=== PATIENT | male | born 1980 | race African-American/Black ===

== ENCOUNTER 2021-06-17 00:07 | Inpatient (IN) | payer OTHER ==
[~2021-06-17] VITALS: Ht 157.5 cm; Wt 46.1 kg
[2021-06-17 01:58] LABS: BASO % 1 % (0-3); EOS % 1 % (0-3); HEMATOCRIT 41.9 % (39.0-53.0); HEMOGLOBIN 14.5 g/dL (13.0-17.5); LYMPH # 1.2 x10^3/uL (1.0-4.8); LYMPH % 37 % (24-48); MEAN CORPUSCULAR HEMOGLOBIN 32 pg (25-35); MEAN CORPUSCULAR HGB CONC 35 g/dL (31-37); MEAN CORPUSCULAR VOLUME 92 fL (79-100); MONO # 0.3 x10^3/uL (0.0-1.1); MONO % 10 % (0-9); NEUT # 1.6 x10^3/uL (1.8-7.7); NEUT % 50 % (31-73); PLATELET COUNT 162 x10^3/uL (140-400); RED BLOOD COUNT 4.54 x10^6/uL (4.30-5.70); RED CELL DISTRIBUTION WIDTH 12.8 % (11.5-14.5); WHITE BLOOD COUNT 3.2 x10^3/uL (4.0-11.0)
[2021-06-17 02:08] LABS: CALCIUM 8.8 mg/dL (8.5-10.1); CREATININE 0.9 mg/dL (0.7-1.3); GFR 113.1; POTASSIUM 4.5 mmol/L (3.5-5.1)
[2021-06-17 02:13] LABS: FIO2 VENOUS ISTAT 21; ISTAT HCO3 VEN 27 mmol/L (24-28); ISTAT PCO2 VEN 45 mmHg (41-51); ISTAT PH VEN 7.38 (7.32-7.42); ISTAT PO2 VEN 71 mmHg (20-40); ISTAT SAT O2 VEN 94 %; ISTAT TCO2 VEN 28 mmol/L (21-32)
[2021-06-17 02:16] LABS: ALBUMIN 3.4 g/dL (3.4-5.0); ALBUMIN/GLOBULIN RATIO 1.1 (1.0-1.7); TOTAL BILIRUBIN 1.5 mg/dL (0.2-1.0); TOTAL PROTEIN 6.4 g/dL (6.4-8.2)
[2021-06-17] MEDS ORDERED: CONTRAST GIVEN. MC PRN (02:45)
[2021-06-17] MEDS ORDERED: ONDANSETRON PF 4 MG/2 ML VIAL. IVP ONE (03:00)
[2021-06-17] MEDS ORDERED: ACETAMINOPHEN 500 MG TABLET PO ONE (03:00)
[2021-06-17] MEDS ORDERED: IOHEXOL 300 MG/ML 100ML VIAL. IV ONE (03:00)
[2021-06-17] MEDS ORDERED: KETOROLAC 15 MG/ML VIAL. IVP ONE (03:00)
[2021-06-17] MEDS ORDERED: IV NORMAL SALINE 1000ML BAG 1,000 ML IV ONE (03:00)
[2021-06-17 03:19] LABS: BILIRUBIN,URINE NEGATIVE (NEG); CLARITY,URINE CLEAR; COLOR,URINE YELLOW; NITRITE,URINE NEGATIVE (NEG); PH,URINE 6.5 (<5.0-8.0); PROTEIN,URINE NEGATIVE (NEG-TRACE)
--- NOTE | 2021-06-17 03:26 | RAD ---
Exam: CT abdomen/pelvis with intravenous contrast Indication: Bilateral lower abdominal pain and inguinal lymphadenopathy. Comparison: None. Technique: Helical CT imaging performed of the abdomen and pelvis after the intravenous administratio n of 75 mL Omnipaque 300 contrast. Sagittal and coronal reformats were obtained. One or more of the following individualized dose reduction techniques were utilized for this examinat ion: 1. Automated exposure control 2. Adjustment of the mA and/or kV according to patient size 3. Use of iterative reconstruction technique. Findings: Lower chest: Lung bases are clear. Heart is normal in size. Liver: Mild hepatic steatosis. No focal liver lesion. Gallbladder/Biliary Tree: Normal. Pancreas: Normal. Spleen: Normal. Adrenal Glands: Normal. Kidneys/Ureters/Bladder: Kidneys are normal in size and enhancement. No hydronephrosis. Ureters are n ondilated. Urinary bladder is normal. Reproductive Organs: Prostate gland is normal. Stomach, small bowel, and colon: The stomach, small bowel, appendix, and colon are unremarkable. Vasculature: No aortic aneurysm. Lymph Nodes: No abdominal pelvic lymphadenopathy. No inguinal lymphadenopathy. Peritoneum and retroperitoneum: Trace free fluid in the pelvis. Free air. Bones: No acute osseous abnormality. Miscellaneous: There are small bilateral inguinal lymph nodes, nonspecific. No inguinal hernia. Impression: 1. No acute abnormality in the abdomen and pelvis. 2. Possible trace fluid in the pelvis, nonspecific. 3. Hepatic steatosis. Electronically signed by: Reta Dominguez MD (06/17/2021 3:23 AM) [facility]
[2021-06-17] MEDS ORDERED: INSULIN REGULAR 100 UNIT/ML 3ML VIAL. SQ ONE (03:30)
[2021-06-17 03:47] LABS: DIRECT BILIRUBIN 0.8 mg/dL (0.0-0.2)
[2021-06-17 03:49] LABS: ACETAMIN < 2 mcg/ml (10-30)
[2021-06-17 03:55] LABS: BACTERIA,URINE 0 /HPF (0-FEW); RBC,URINE 0 /HPF (0-2); WBC,URINE OCC /HPF (0-4)
--- NOTE | 2021-06-17 05:11 | PHYS DOC ---
Past Medical History Past Surgical History: No Surgical History Smoking Status: Current Every Day Smoker Alcohol Use: None Adult General Chief Complaint Chief Complaint: NAUSEA/VOMITING/DIARRHEA HPI HPI The patient is a 41-year-old [place] male with a history of insulin- dependent diabetes, off his insulin for the last 1.5 years as he feels he no longer needs it. He does not have any other diagnosed medical conditions for which he takes daily medication. Fluent telephonic interpretation used to gather history. Mr. Roper presents for evaluation of nausea, a few episodes of nonbloody vomiting per day and poor food and fluid intake over the past 3 days, in association with bilateral tender inguinal lymphadenopathy which he has noticed only over the past day or so. He denies any other focal or specific symptoms and specifically denies fevers, upper respiratory congestion/rhinorrhea, cough, sore throat, shortness of breath or chest pain of any kind, focal abdominal pain of any kind, flank pain, midline back pain, dysuria, hematuria, polyuria or oliguria, pain to testicles or scrotum specifically, changes in bowel habits. Patient is alert and pleasantly and appropriately interactive and in no acute distress with appropriate vital signs upon initial evaluation here in the emergency department. Review of Systems Review of Systems A 12 point review of systems was completed and was negative except where noted in HPI above. Current Medications Current Medications Current Medications Medications (Trade) Dose Ordered Sig/Carlitos Start Time Stop Time Status Last Admin Dose Admin Acetaminophen (Tylenol) 1,000 mg 1X ONCE 06/17/21 03:00 06/17/21 03:01 DC 06/17/21 02:41 1,000 MG Info (CONTRAST GIVEN -- Rx MONITORING) 1 each PRN DAILY PRN 06/17/21 02:45 06/19/21 02:44 Insulin Human Regular (HumuLIN R VIAL) 10 unit 1X ONCE 06/17/21 03:30 06/17/21 03:31 DC 06/17/21 03:45 10 UNIT Iohexol (Omnipaque 300 Mg/ml) 75 ml 1X ONCE 06/17/21 03:00 06/17/21 03:01 DC 06/17/21 02:34 75 ML Ketorolac Tromethamine (Toradol 15mg Vial) 15 mg 1X ONCE 06/17/21 03:00 06/17/21 03:01 DC 06/17/21 02:41 15 MG Ondansetron HCl (Zofran) 4 mg 1X ONCE 06/17/21 03:00 06/17/21 03:01 DC 06/17/21 02:40 4 MG Sodium Chloride 1,000 ml @ 1,000 mls/hr 1X ONCE 06/17/21 03:00 06/17/21 03:59 DC 06/17/21 02:40 1,000 MLS/HR Allergies Allergies Allergies Coded Allergies Type Severity Reaction Last Updated Verified No Known Drug Allergies 06/17/21 No Physical Exam Physical Exam 41-year-old male appearing nontoxic and in no acute distress. Head is normocephalic and atraumatic. Neck is supple and nontender. Oropharynx is moist. Lungs are clear to auscultation at all stations. There is a normal S1 and S2 without rubs or gallops and capillary refill is appropriate, less than 2 seconds globally. Abdomen is soft, nontender and nondistended. Skin is warm and dry and without cyanosis, clubbing or edema. Psychiatrically, the patient demonstrates appropriate mood and affect and is alert. Evaluation of the bilateral lower extremities reveals BLEs neurovascularly intact distally with strength out of 5, sensation intact light touch in all nerve distributions, DP and PT pulses 2+ and equal bilaterally, capillary refill less than 2 seconds, feet warm and well-perfused. No dependent peripheral edema distally. No calf tenderness or swelling bilaterally. Homans test is negative bilaterally. No erythema, warmth or swelling to the bilateral legs. Evaluation of the groin reveals tender bilateral inguinal lymphadenopathy without overlying erythema. Scrotum and testicles and penis are without erythema, warmth or swelling and without tenderness to palpation. Testicles have a normal lie bilaterally Current Patient Data Vital Signs Vital Signs Date Time Temp Pulse Resp B/P (MAP) Pulse Ox O2 Delivery O2 Flow Rate FiO2 06/17/21 04:15 48 18 122/85 (97) 99 Room Air 06/17/21 01:20 98.0 98.0 Lab Values Laboratory Tests Test 06/17/21 01:09 06/17/21 01:40 06/17/21 01:44 06/17/21 03:00 Glucose (Fingerstick) 420 mg/dL (70-99) H White Blood Count 3.2 x10^3/uL (4.0-11.0) L Red Blood Count 4.54 x10^6/uL (4.30-5.70) Hemoglobin 14.5 g/dL (13.0-17.5) Hematocrit 41.9 % (39.0-53.0) Mean Corpuscular Volume 92 fL (79-100) Mean Corpuscular Hemoglobin 32 pg (25-35) Mean Corpuscular Hemoglobin Concent 35 g/dL (31-37) Red Cell Distribution Width 12.8 % (11.5-14.5) Platelet Count 162 x10^3/uL (140-400) Neutrophils (%) (Auto) 50 % (31-73) Lymphocytes (%) (Auto) 37 % (24-48) Monocytes (%) (Auto) 10 % (0-9) H Eosinophils (%) (Auto) 1 % (0-3) Basophils (%) (Auto) 1 % (0-3) Neutrophils # (Auto) 1.6 x10^3/uL (1.8-7.7) L Lymphocytes # (Auto) 1.2 x10^3/uL (1.0-4.8) Monocytes # (Auto) 0.3 x10^3/uL (0.0-1.1) Eosinophils # (Auto) 0.0 x10^3/uL (0.0-0.7) Basophils # (Auto) 0.0 x10^3/uL (0.0-0.2) Sodium Level 136 mmol/L (136-145) Potassium Level 4.5 mmol/L (3.5-5.1) Chloride Level 97 mmol/L (98-107) L Carbon Dioxide Level 27 mmol/L (21-32) Anion Gap 12 (6-14) Blood Urea Nitrogen 13 mg/dL (8-26) Creatinine 0.9 mg/dL (0.7-1.3) Estimated GFR (Cockcroft-Gault) 113.1 BUN/Creatinine Ratio 14 (6-20) Glucose Level 406 mg/dL (70-99) H Calcium Level 8.8 mg/dL (8.5-10.1) Total Bilirubin 1.5 mg/dL (0.2-1.0) H Aspartate Amino Transferase (AST) 641 U/L (15-37) H Alanine Aminotransferase (ALT) 2737 U/L (16-63) H Alkaline Phosphatase 158 U/L (46-116) H Total Protein 6.4 g/dL (6.4-8.2) Albumin 3.4 g/dL (3.4-5.0) Albumin/Globulin Ratio 1.1 (1.0-1.7) Lipase 153 U/L (73-393) Acetone Level Neg (NEG) POC Venous pH 7.38 (7.32-7.42) POC Venous pCO2 45 mmHg (41-51) POC Venous pO2 71 mmHg (20-40) H Venous Blood HCO3 27 mmol/L (24-28) POC Venous O2 Saturation (Dana) 94 % POC FiO2 21 Direct Bilirubin 0.8 mg/dL (0.0-0.2) H Gamma Glutamyl Transpeptidase 785 U/L (10-85) H Acetaminophen Level < 2 mcg/ml (10-30) L Acetaminophen Last Dose Date Acetaminophen Last Dose Time Hepatitis A IgM Antibody Nonreactive (Nonreactive) Hepatitis B Surface Antigen Nonreactive (Nonreactive) Hepatitis B Core IgM Antibody Nonreactive (Nonreactive) Hepatitis C IgG Antibody Nonreactive (Nonreactive) Urine Collection Type Unknown Urine Color Yellow Urine Clarity Clear Urine pH 6.5 (<5.0-8.0) Urine Specific [place] >=1.030 (1.000-1.030) Urine Protein Negative mg/dL (NEG-TRACE) Urine Glucose (UA) >=1000 mg/dL (NEG) Urine Ketones (Stick) Trace mg/dL (NEG) Urine Blood Negative (NEG) Urine Nitrite Negative (NEG) Urine Bilirubin Negative (NEG) Urine Urobilinogen Dipstick 1.0 mg/dL (0.2 mg/dL) Urine Leukocyte Esterase Negative (NEG) Urine RBC 0 /HPF (0-2) Urine WBC Occ /HPF (0-4) Urine Squamous Epithelial Cells Occ /LPF Urine Bacteria 0 /HPF (0-FEW) Laboratory Tests 06/17/21 01:40 Laboratory Tests 06/17/21 01:40 EKG EKG [] Radiology/Procedures Radiology/Procedures [] Course & Med Decision Making Course & Med Decision Making Work-up as above is generally without evidence of acute process aside from hyperglycemia which has been addressed with IV fluids and subcutaneous insulin, along with rather marked transaminasemia and mild cholestasis. In context, suspected patient's anorexia, nausea and vomiting are probably due to his LFT abnormalities. He does not have any right upper quadrant abdominal tenderness. CT with evidence of hepatic steatosis but otherwise unremarkable from a hepatic and biliary perspective. Tylenol level and acute hepatitis panel negative. Right upper quadrant ultrasound ordered and pending. Will bring in for further care, including GI consultation. Graciously accepted for admission by hospitalist Dr. Arnett. Kamille Disclaimer Kamille Disclaimer This electronic medical record was generated, in whole or in part, using a voice recognition dictation system. Departure Departure Impression: Primary Impression: Cholestasis Additional Impressions: Transaminasemia Inguinal lymphadenopathy Hyperglycemia due to diabetes mellitus Disposition: ADMITTED INPATIENT Condition: STABLE Referrals: NO PCP (PCP) Problem Qualifiers BILL ELMORE MD Jun 17, 2021 05:11
[2021-06-17] MEDS ORDERED: ONDANSETRON PF 4 MG/2 ML VIAL. IVP PRN (05:15)
[2021-06-17] MEDS ORDERED: fentaNYL PF VIAL 100 MCG/2 ML VIAL IVP PRN (05:15)
--- NOTE | 2021-06-17 07:01 | RAD ---
EXAMINATION: US ABDOMEN LIMITED 06/17/2021 5:52 AM INDICATION: Abnormal LFTs. Right upper quadrant ultrasound. TECHNIQUE: Joel scale and color Doppler ultrasound images of the right upper quadrant were obtained. COMPARISON: CT abdomen pelvis 06/17/2021. FINDINGS: Liver: The liver is normal in size. Mildly increased hepatic echogenicity. No focal liver lesion. Gallbladder: The gallbladder is mildly distended. No cholelithiasis or sludge. The gallbladder wal l is normal in thickness. Bile ducts: The common bile duct is normal measuring 1.4 mm. No intrahepatic biliary duct dilatatio n. Right kidney: The right kidney measures 11.0 x 4.3 x 4.1 cm. Normal cortical thickness and echogenic ity. No hydronephrosis. Other: Abdominal aorta and inferior vena cava are normal where visualized. The pancreas is normal wh ere visualized. IMPRESSION: Mild hepatic steatosis. Electronically signed by: Reta Dominguez MD (06/17/2021 6:59 AM) [facility]
[2021-06-17] MEDS ORDERED: INSULIN LISPRO 300 UNITS/3 ML VIAL. SQ ONE ×2 (18:30→23:45)
[2021-06-17 19:00] VITALS: BP 117/74
[2021-06-17 23:00] VITALS: BP 107/76
[2021-06-17] MEDS ORDERED: DEXTROSE 50% 25 GM / 50ML DISP.SYRIN. IV PRN (23:00)
[2021-06-18 03:00] VITALS: BP 107/72
[2021-06-18 07:00] VITALS: BP 118/81
[2021-06-18 08:32] LABS: BASO % 1 % (0-3); EOS % 1 % (0-3); HEMATOCRIT 38.6 % (39.0-53.0); HEMOGLOBIN 13.1 g/dL (13.0-17.5); LYMPH # 1.2 x10^3/uL (1.0-4.8); LYMPH % 32 % (24-48); MEAN CORPUSCULAR HEMOGLOBIN 32 pg (25-35); MEAN CORPUSCULAR HGB CONC 34 g/dL (31-37); MEAN CORPUSCULAR VOLUME 93 fL (79-100); MONO # 0.3 x10^3/uL (0.0-1.1); MONO % 9 % (0-9); NEUT # 2.1 x10^3/uL (1.8-7.7); NEUT % 57 % (31-73); PLATELET COUNT 142 x10^3/uL (140-400); RED BLOOD COUNT 4.14 x10^6/uL (4.30-5.70); RED CELL DISTRIBUTION WIDTH 12.9 % (11.5-14.5); WHITE BLOOD COUNT 3.7 x10^3/uL (4.0-11.0)
[2021-06-18 09:02] LABS: ALBUMIN 2.7 g/dL (3.4-5.0); ALBUMIN/GLOBULIN RATIO 0.9 (1.0-1.7); CALCIUM 8.2 mg/dL (8.5-10.1); CREATININE 0.9 mg/dL (0.7-1.3); GFR 113.1; POTASSIUM 3.7 mmol/L (3.5-5.1); TOTAL BILIRUBIN 0.6 mg/dL (0.2-1.0); TOTAL PROTEIN 5.7 g/dL (6.4-8.2)
[2021-06-18] MEDS: INSULIN LISPRO 300 UNITS/3 ML VIAL. SQ SCH ×5 (09:45→18:43)
--- NOTE | 2021-06-18 09:46 | PDOC2 ---
CONSULT Date of Consult Date of Consult DATE: 06/18/21 TIME: 09:36 Reason for Consult Reason for Consult: Elevated transaminases History of Present Illness Reason for Visit: This is a 41-year-old gentleman who presents with a recent history of nausea and bilateral inguinal discomfort. He has been unable to eat but without significant vomiting or bleeding. On admission he was found to have elevated transaminases we were asked to see him. He denies any history of Tylenol ingestion or previous hepatitis exposure. He denies significant alcohol use. He is in a diabetic but has not been taking his medications recently. On admission he was hyperglycemic. Imaging studies did not reveal significant liver or biliary pathology except for mild steatosis. We were asked to see re garding these abnormalities. Past Medical History Endocrine: Diabetes Current Problem List Problem List Problems Medical Problems: (1) Cholestasis Status: Acute (2) Hyperglycemia due to diabetes mellitus Status: Acute (3) Inguinal lymphadenopathy Status: Acute (4) Transaminasemia Status: Acute Current Medications Current Medications Current Medications Sodium Chloride 1,000 ml @ 1,000 mls/hr 1X ONCE IV Last administered on 06/17/21at 02:40; Start 06/17/21 at 03:00; Stop 06/17/21 at 03:59; Status DC Ketorolac Tromethamine (Toradol 15mg Vial) 15 mg 1X ONCE IVP Last administered on 06/17/21at 02:41; Start 06/17/21 at 03:00; Stop 06/17/21 at 03:01; Status DC Acetaminophen (Tylenol) 1,000 mg 1X ONCE PO Last administered on 06/17/21at 02:41; Start 06/17/21 at 03:00; Stop 06/17/21 at 03:01; Status DC Ondansetron HCl (Zofran) 4 mg 1X ONCE IVP Last administered on 06/17/21at 02:40; Start 06/17/21 at 03:00; Stop 06/17/21 at 03:01; Status DC Iohexol (Omnipaque 300 Mg/ml) 75 ml 1X ONCE IV Last administered on 06/17/21at 02:34; Start 06/17/21 at 03:00; Stop 06/17/21 at 03:01; Status DC Info (CONTRAST GIVEN -- Rx MONITORING) 1 each PRN DAILY PRN MC SEE COMMENTS; Start 06/17/21 at 02:45; Stop 06/19/21 at 02:44 Insulin Human Regular (HumuLIN R VIAL) 10 unit 1X ONCE SQ Last administered on 06/17/21at 03:45; Start 06/17/21 at 03:30; Stop 06/17/21 at 03:31; Status DC Ondansetron HCl (Zofran) 4 mg PRN Q8HRS PRN IVP NAUSEA/VOMITING 1ST CHOICE; Start 06/17/21 at 05:15; Stop 06/18/21 at 05:14; Status DC Fentanyl Citrate (Fentanyl 2ml Vial) 25 mcg PRN Q1HR PRN IVP SEVERE PAIN 7-10; Start 06/17/21 at 05:15; Stop 06/18/21 at 05:14; Status DC Insulin Human Lispro (HumaLOG) 7 units 1X ONCE SQ Last administered on 06/17/21at 20:20; Start 06/17/21 at 18:30; Stop 06/17/21 at 18:31; Status DC Insulin Human Lispro (HumaLOG) 0-9 UNITS TIDWMEALS SQ ; Start 06/18/21 at 08:00 Dextrose (Dextrose 50%-Water Syringe) 12.5 gm PRN Q15MIN PRN IV SEE COMMENTS; Start 06/17/21 at 23:00 Insulin Human Lispro (HumaLOG) 5 units 1X ONCE SQ Last administered on 06/17/21at 23:41; Start 06/17/21 at 23:45; Stop 06/17/21 at 23:46; Status DC Allergies Allergies: Coded Allergies: No Known Drug Allergies (Unverified , 06/17/21) Physical Exam General: Alert, Oriented X3, Cooperative HEENT: Atraumatic, PERRLA Lungs: Clear to auscultation Heart: Regular rate, Normal S1, Normal S2 Abdomen: Normal bowel sounds, Soft, No tenderness, No hepatosplenomegaly, No masses Extremities: No clubbing Neuro: Normal speech Psych/Mental Status: Mental status NL Vitals VITALS Vital Signs Date Time Temp Pulse Resp B/P (MAP) Pulse Ox O2 Delivery O2 Flow Rate FiO2 06/18/21 07:00 98.3 51 16 118/81 (93) 97 Room Air 98.3 Labs Labs Laboratory Tests Test 06/17/21 01:09 06/17/21 01:40 06/17/21 01:44 06/17/21 03:00 Glucose (Fingerstick) 420 mg/dL (70-99) White Blood Count 3.2 x10^3/uL (4.0-11.0) Red Blood Count 4.54 x10^6/uL (4.30-5.70) Hemoglobin 14.5 g/dL (13.0-17.5) Hematocrit 41.9 % (39.0-53.0) Mean Corpuscular Volume 92 fL (79-100) Mean Corpuscular Hemoglobin 32 pg (25-35) Mean Corpuscular Hemoglobin Concent 35 g/dL (31-37) Red Cell Distribution Width 12.8 % (11.5-14.5) Platelet Count 162 x10^3/uL (140-400) Neutrophils (%) (Auto) 50 % (31-73) Lymphocytes (%) (Auto) 37 % (24-48) Monocytes (%) (Auto) 10 % (0-9) Eosinophils (%) (Auto) 1 % (0-3) Basophils (%) (Auto) 1 % (0-3) Neutrophils # (Auto) 1.6 x10^3/uL (1.8-7.7) Lymphocytes # (Auto) 1.2 x10^3/uL (1.0-4.8) Monocytes # (Auto) 0.3 x10^3/uL (0.0-1.1) Eosinophils # (Auto) 0.0 x10^3/uL (0.0-0.7) Basophils # (Auto) 0.0 x10^3/uL (0.0-0.2) Sodium Level 136 mmol/L (136-145) Potassium Level 4.5 mmol/L (3.5-5.1) Chloride Level 97 mmol/L (98-107) Carbon Dioxide Level 27 mmol/L (21-32) Anion Gap 12 (6-14) Blood Urea Nitrogen 13 mg/dL (8-26) Creatinine 0.9 mg/dL (0.7-1.3) Estimated GFR (Cockcroft-Gault) 113.1 BUN/Creatinine Ratio 14 (6-20) Glucose Level 406 mg/dL (70-99) Calcium Level 8.8 mg/dL (8.5-10.1) Total Bilirubin 1.5 mg/dL (0.2-1.0) Aspartate Amino Transf (AST/SGOT) 641 U/L (15-37) Alanine Aminotransferase (ALT/SGPT) 2737 U/L (16-63) Alkaline Phosphatase 158 U/L (46-116) Total Protein 6.4 g/dL (6.4-8.2) Albumin 3.4 g/dL (3.4-5.0) Albumin/Globulin Ratio 1.1 (1.0-1.7) Lipase 153 U/L (73-393) Acetone Level Neg (NEG) Bedside Venous pH 7.38 (7.32-7.42) Bedside Venous pCO2 45 mmHg (41-51) Bedside Venous pO2 71 mmHg (20-40) Venous Blood HCO3 27 mmol/L (24-28) POC Venous O2 Saturation (Dana) 94 % Bedside FiO2 21 Direct Bilirubin 0.8 mg/dL (0.0-0.2) Gamma Glutamyl Transpeptidase 785 U/L (10-85) Acetaminophen Level < 2 mcg/ml (10-30) Acetaminophen Last Dose Date Acetaminophen Last Dose Time Hepatitis A IgM Antibody Nonreactive (Nonreactive) Hepatitis B Surface Antigen Nonreactive (Nonreactive) Hepatitis B Core IgM Antibody Nonreactive (Nonreactive) Hepatitis C IgG Antibody Nonreactive (Nonreactive) Urine Collection Type Unknown Urine Color Yellow Urine Clarity Clear Urine pH 6.5 (<5.0-8.0) Urine Specific [place] >=1.030 (1.000-1.030) Urine Protein Negative mg/dL (NEG-TRACE) Urine Glucose (UA) >=1000 mg/dL (NEG) Urine Ketones (Stick) Trace mg/dL (NEG) Urine Blood Negative (NEG) Urine Nitrite Negative (NEG) Urine Bilirubin Negative (NEG) Urine Urobilinogen Dipstick 1.0 mg/dL (0.2 mg/dL) Urine Leukocyte Esterase Negative (NEG) Urine RBC 0 /HPF (0-2) Urine WBC Occ /HPF (0-4) Urine Squamous Epithelial Cells Occ /LPF Urine Bacteria 0 /HPF (0-FEW) Test 06/17/21 13:52 06/17/21 17:40 06/17/21 20:23 06/17/21 20:58 Glucose (Fingerstick) 135 mg/dL (70-99) 490 mg/dL (70-99) 549 mg/dL (70-99) 589 mg/dL (70-99) Test 06/17/21 22:44 06/18/21 02:03 06/18/21 06:40 06/18/21 07:39 Glucose (Fingerstick) 325 mg/dL (70-99) 169 mg/dL (70-99) 279 mg/dL (70-99) White Blood Count 3.7 x10^3/uL (4.0-11.0) Red Blood Count 4.14 x10^6/uL (4.30-5.70) Hemoglobin 13.1 g/dL (13.0-17.5) Hematocrit 38.6 % (39.0-53.0) Mean Corpuscular Volume 93 fL (79-100) Mean Corpuscular Hemoglobin 32 pg (25-35) Mean Corpuscular Hemoglobin Concent 34 g/dL (31-37) Red Cell Distribution Width 12.9 % (11.5-14.5) Platelet Count 142 x10^3/uL (140-400) Neutrophils (%) (Auto) 57 % (31-73) Lymphocytes (%) (Auto) 32 % (24-48) Monocytes (%) (Auto) 9 % (0-9) Eosinophils (%) (Auto) 1 % (0-3) Basophils (%) (Auto) 1 % (0-3) Neutrophils # (Auto) 2.1 x10^3/uL (1.8-7.7) Lymphocytes # (Auto) 1.2 x10^3/uL (1.0-4.8) Monocytes # (Auto) 0.3 x10^3/uL (0.0-1.1) Eosinophils # (Auto) 0.0 x10^3/uL (0.0-0.7) Basophils # (Auto) 0.0 x10^3/uL (0.0-0.2) Sodium Level 141 mmol/L (136-145) Potassium Level 3.7 mmol/L (3.5-5.1) Chloride Level 104 mmol/L (98-107) Carbon Dioxide Level 28 mmol/L (21-32) Anion Gap 9 (6-14) Blood Urea Nitrogen 14 mg/dL (8-26) Creatinine 0.9 mg/dL (0.7-1.3) Estimated GFR (Cockcroft-Gault) 113.1 BUN/Creatinine Ratio 16 (6-20) Glucose Level 231 mg/dL (70-99) Calcium Level 8.2 mg/dL (8.5-10.1) Total Bilirubin 0.6 mg/dL (0.2-1.0) Aspartate Amino Transf (AST/SGOT) 223 U/L (15-37) Alanine Aminotransferase (ALT/SGPT) 1667 U/L (16-63) Alkaline Phosphatase 124 U/L (46-116) Total Protein 5.7 g/dL (6.4-8.2) Albumin 2.7 g/dL (3.4-5.0) Albumin/Globulin Ratio 0.9 (1.0-1.7) Laboratory Tests Test 06/17/21 13:52 06/17/21 17:40 06/17/21 20:23 06/17/21 20:58 Glucose (Fingerstick) 135 mg/dL (70-99) 490 mg/dL (70-99) 549 mg/dL (70-99) 589 mg/dL (70-99) Test 06/17/21 22:44 06/18/21 02:03 06/18/21 06:40 06/18/21 07:39 Glucose (Fingerstick) 325 mg/dL (70-99) 169 mg/dL (70-99) 279 mg/dL (70-99) White Blood Count 3.7 x10^3/uL (4.0-11.0) Red Blood Count 4.14 x10^6/uL (4.30-5.70) Hemoglobin 13.1 g/dL (13.0-17.5) Hematocrit 38.6 % (39.0-53.0) Mean Corpuscular Volume 93 fL (79-100) Mean Corpuscular Hemoglobin 32 pg (25-35) Mean Corpuscular Hemoglobin Concent 34 g/dL (31-37) Red Cell Distribution Width 12.9 % (11.5-14.5) Platelet Count 142 x10^3/uL (140-400) Neutrophils (%) (Auto) 57 % (31-73) Lymphocytes (%) (Auto) 32 % (24-48) Monocytes (%) (Auto) 9 % (0-9) Eosinophils (%) (Auto) 1 % (0-3) Basophils (%) (Auto) 1 % (0-3) Neutrophils # (Auto) 2.1 x10^3/uL (1.8-7.7) Lymphocytes # (Auto) 1.2 x10^3/uL (1.0-4.8) Monocytes # (Auto) 0.3 x10^3/uL (0.0-1.1) Eosinophils # (Auto) 0.0 x10^3/uL (0.0-0.7) Basophils # (Auto) 0.0 x10^3/uL (0.0-0.2) Sodium Level 141 mmol/L (136-145) Potassium Level 3.7 mmol/L (3.5-5.1) Chloride Level 104 mmol/L (98-107) Carbon Dioxide Level 28 mmol/L (21-32) Anion Gap 9 (6-14) Blood Urea Nitrogen 14 mg/dL (8-26) Creatinine 0.9 mg/dL (0.7-1.3) Estimated GFR (Cockcroft-Gault) 113.1 BUN/Creatinine Ratio 16 (6-20) Glucose Level 231 mg/dL (70-99) Calcium Level 8.2 mg/dL (8.5-10.1) Total Bilirubin 0.6 mg/dL (0.2-1.0) Aspartate Amino Transf (AST/SGOT) 223 U/L (15-37) Alanine Aminotransferase (ALT/SGPT) 1667 U/L (16-63) Alkaline Phosphatase 124 U/L (46-116) Total Protein 5.7 g/dL (6.4-8.2) Albumin 2.7 g/dL (3.4-5.0) Albumin/Globulin Ratio 0.9 (1.0-1.7) Images Images Exam: CT abdomen/pelvis with intravenous contrast Indication: Bilateral lower abdominal pain and inguinal lymphadenopathy. Comparison: None. Technique: Helical CT imaging performed of the abdomen and pelvis after the intravenous administration of 75 mL Omnipaque 300 contrast. Sagittal and coronal reformats were obtained. One or more of the following individualized dose reduction techniques were utilized for this examination: 1. Automated exposure control 2. Adjustment of the mA and/or kV according to patient size 3. Use of iterative reconstruction technique. Findings: Lower chest: Lung bases are clear. Heart is normal in size. Liver: Mild hepatic steatosis. No focal liver lesion. Gallbladder/Biliary Tree: Normal. Pancreas: Normal. Spleen: Normal. Adrenal Glands: Normal. Kidneys/Ureters/Bladder: Kidneys are normal in size and enhancement. No hydronephrosis. Ureters are nondilated. Urinary bladder is normal. Reproductive Organs: Prostate gland is normal. Stomach, small bowel, and colon: The stomach, small bowel, appendix, and colon are unremarkable. Vasculature: No aortic aneurysm. Lymph Nodes: No abdominal pelvic lymphadenopathy. No inguinal lymphadenopathy. Peritoneum and retroperitoneum: Trace free fluid in the pelvis. Free air. Bones: No acute osseous abnormality. Miscellaneous: There are small bilateral inguinal lymph nodes, nonspecific. No inguinal hernia. Impression: 1. No acute abnormality in the abdomen and pelvis. 2. Possible trace fluid in the pelvis, nonspecific. 3. Hepatic steatosis. EXAMINATION: US ABDOMEN LIMITED 06/17/2021 5:52 AM INDICATION: Abnormal LFTs. Right upper quadrant ultrasound. TECHNIQUE: Joel scale and color Doppler ultrasound images of the right upper quadrant were obtained. COMPARISON: CT abdomen pelvis 06/17/2021. FINDINGS: Liver: The liver is normal in size. Mildly increased hepatic echogenicity. No focal liver lesion. Gallbladder: The gallbladder is mildly distended. No cholelithiasis or sludge. The gallbladder wall is normal in thickness. Bile ducts: The common bile duct is normal measuring 1.4 mm. No intrahepatic biliary duct dilatation. Right kidney: The right kidney measures 11.0 x 4.3 x 4.1 cm. Normal cortical thickness and echogenicity. No hydronephrosis. Other: Abdominal aorta and inferior vena cava are normal where visualized. The pancreas is normal where visualized. IMPRESSION: Mild hepatic steatosis. Assessment/Plan Assessment/Plan Acute transaminase elevation. Hepatitis screen is negative. No recent travel or hepatitis exposure. No recent Tylenol use and Tylenol level was undetectable. Other causes for this probably are infectious or ischemic particularly with his recent nausea and decreased appetite. Unusual viral causes could also be considered including EBV and CMV. Also he is diabetic and has not been taking his medications so all of this may have generated a more low-flow ischemic condition than was initially appreciated. Other causes for his acute elevation of transaminases including rhabdomyolysis etc. should be considered and CPKs should be monitored. Inguinal discomfort. Some mild tenderness here but the CAT scan failed to reveal inguinal adenopathy. No other adenopathy is appreciated. Plan: Supportive care with fluid resuscitation and diet Follow LFTs but also check CPK May also consider other viral causes- EBV, CMV later- if appropriate STORMY CHUN MD Jun 18, 2021 09:46
[2021-06-18 10:23] LABS: CREATINE KINASE 40 U/L (39-308); LACTATE DEHYDROGENASE 183 U/L (85-227)
--- NOTE | 2021-06-18 10:53 | PDOC1 ---
History and Physical Date of Admission Date of Admission DATE: 06/18/21 TIME: 10:53 Identification/Chief Complaint Chief Complaint nausea, Source Source: Chart review, Patient History of Present Illness History of Present Illness MR. Roper is a 41-year-old [place] male with a history of insulin- dependent diabetes, has not been taking insulin for over a year. Has not been to a doctor, had felt well, but has lost some weight and is very thin. He was admitted with acute complain tof of nausea, with new vomiting a couple of times but he now thinks he feels better and would like to try to eat more, Patient is alert and pleasantly and appropriately interactive and in no acute distress Past Medical History Cardiovascular: No pertinent hx Endocrine: Diabetes Past Surgical History Past Surgical History: No pertinent history Family History Family History: No Significant Social History Smoke: No ALCOHOL: none Drugs: None Current Problem List Problem List Problems Medical Problems: (1) Cholestasis Status: Acute (2) Hyperglycemia due to diabetes mellitus Status: Acute (3) Inguinal lymphadenopathy Status: Acute (4) Transaminasemia Status: Acute Current Medications Current Medications Current Medications Sodium Chloride 1,000 ml @ 1,000 mls/hr 1X ONCE IV Last administered on 06/17/21at 02:40; Start 06/17/21 at 03:00; Stop 06/17/21 at 03:59; Status DC Ketorolac Tromethamine (Toradol 15mg Vial) 15 mg 1X ONCE IVP Last administered on 06/17/21at 02:41; Start 06/17/21 at 03:00; Stop 06/17/21 at 03:01; Status DC Acetaminophen (Tylenol) 1,000 mg 1X ONCE PO Last administered on 06/17/21at 02:41; Start 06/17/21 at 03:00; Stop 06/17/21 at 03:01; Status DC Ondansetron HCl (Zofran) 4 mg 1X ONCE IVP Last administered on 06/17/21at 02:40; Start 06/17/21 at 03:00; Stop 06/17/21 at 03:01; Status DC Iohexol (Omnipaque 300 Mg/ml) 75 ml 1X ONCE IV Last administered on 06/17/21at 02:34; Start 06/17/21 at 03:00; Stop 06/17/21 at 03:01; Status DC Info (CONTRAST GIVEN -- Rx MONITORING) 1 each PRN DAILY PRN MC SEE COMMENTS; Start 06/17/21 at 02:45; Stop 06/19/21 at 02:44 Insulin Human Regular (HumuLIN R VIAL) 10 unit 1X ONCE SQ Last administered on 06/17/21at 03:45; Start 06/17/21 at 03:30; Stop 06/17/21 at 03:31; Status DC Ondansetron HCl (Zofran) 4 mg PRN Q8HRS PRN IVP NAUSEA/VOMITING 1ST CHOICE; Start 06/17/21 at 05:15; Stop 06/18/21 at 05:14; Status DC Fentanyl Citrate (Fentanyl 2ml Vial) 25 mcg PRN Q1HR PRN IVP SEVERE PAIN 7-10; Start 06/17/21 at 05:15; Stop 06/18/21 at 05:14; Status DC Insulin Human Lispro (HumaLOG) 7 units 1X ONCE SQ Last administered on 06/17/21at 20:20; Start 06/17/21 at 18:30; Stop 06/17/21 at 18:31; Status DC Insulin Human Lispro (HumaLOG) 0-9 UNITS TIDWMEALS SQ Last administered on 06/18/21at 09:45; Start 06/18/21 at 08:00 Dextrose (Dextrose 50%-Water Syringe) 12.5 gm PRN Q15MIN PRN IV SEE COMMENTS; Start 06/17/21 at 23:00 Insulin Human Lispro (HumaLOG) 5 units 1X ONCE SQ Last administered on 06/17/21at 23:41; Start 06/17/21 at 23:45; Stop 06/17/21 at 23:46; Status DC Allergies Allergies: Coded Allergies: No Known Drug Allergies (Unverified , 06/17/21) ROS General: YES: Fatigue; No: Chills, Night Sweats, Malaise, Appetite, Other PSYCHOLOGICAL ROS: No: Anxiety, Behavioral Disorder, Concentration difficultie, Decreased libido, Depression, Disorientation, Hallucinations, Hostility, Irritablity, Memory difficulties, Mood Swings, Obsessive thoughts, Physical abuse, Sexual abuse, Sleep disturbances, Suicidal ideation, Other Eyes: No Blurry vision, No Decreased vision, No Double vision, No Dry eyes, No Excessive tearing, No Eye Pain, No Itchy Eyes, No Loss of vision, No Photophobia, No Scotomata, No Uses contacts, No Uses glasses, No Other HEENT: No: Heacaches, Visual Changes, Hearing change, Nasal congestion, Nasal discharge, Oral lesions, Sinus pain, Sore Throat, Epistaxis, Sneezing, Snoring, Tinnitus, Vertigo, Vocal changes, Other Respiratory: No: Cough, Hemoptysis, Orthopnea, Pleuritic Pain, Shortness of breath, SOB with excertion, Sputum Changes, Stridor, Tachypnea, Wheezing, Other Cardiovascular: No Chest Pain, No Palpitations, No Orthopnea, No Paroxysmal Noc. Dyspnea, No Edema, No Lt Headedness, No Other Gastrointestinal: Yes Nausea, Yes Abdominal Pain Genitourinary: No Dysuria, No Frequency, No Incontinence, No Hematuria, No Retention, No Discharge, No Urgency, No Pain, No Flank Pain, No Other, No , No , No , No , No , No , No Musculoskeletal: No Gait Disturbance, No Joint Pain, No Joint Stiffness, No Joint Swelling, No Muscle Pain, No Muscular Weakness, No Pain In:, No Swelling In:, No Other Neurological: No Behavorial Changes, No Bowel/Bladder ControlChng, No Confusion, No Dizziness, No Gait Disturbance, No Headaches, No Impaired Coord/balance, No Memory Loss, No Numbness/Tingling, No Seizures, No Speech Problems, No Tremors, No Visual Changes, No Weakness, No Other Skin: Yes Dry Skin; No Eczema, No Hair Changes, No Lumps, No Mole Changes, No Mottling, No Nail Changes, No Pruritus, No Rash, No Skin Lesion Changes, No Other, No Acne Physical Exam Physical Exam very thin, BMI 18.4 General: Alert, Oriented X3, Cooperative, No acute distress HEENT: Atraumatic Lungs: Clear to auscultation Heart: S1S2, RRR Abdomen: Normal bowel sounds, Soft Extremities: No edema, Normal pulses Skin: No rashes, No significant lesion Neuro: Normal speech, Normal tone Psych/Mental Status: Mental status NL, Mood NL Vitals Vitals Vital Signs Date Time Temp Pulse Resp B/P (MAP) Pulse Ox O2 Delivery O2 Flow Rate FiO2 06/18/21 07:00 98.3 51 16 118/81 (93) 97 Room Air 98.3 Labs Labs Laboratory Tests Test 06/17/21 01:09 06/17/21 01:40 06/17/21 01:44 06/17/21 03:00 Glucose (Fingerstick) 420 mg/dL (70-99) White Blood Count 3.2 x10^3/uL (4.0-11.0) Red Blood Count 4.54 x10^6/uL (4.30-5.70) Hemoglobin 14.5 g/dL (13.0-17.5) Hematocrit 41.9 % (39.0-53.0) Mean Corpuscular Volume 92 fL (79-100) Mean Corpuscular Hemoglobin 32 pg (25-35) Mean Corpuscular Hemoglobin Concent 35 g/dL (31-37) Red Cell Distribution Width 12.8 % (11.5-14.5) Platelet Count 162 x10^3/uL (140-400) Neutrophils (%) (Auto) 50 % (31-73) Lymphocytes (%) (Auto) 37 % (24-48) Monocytes (%) (Auto) 10 % (0-9) Eosinophils (%) (Auto) 1 % (0-3) Basophils (%) (Auto) 1 % (0-3) Neutrophils # (Auto) 1.6 x10^3/uL (1.8-7.7) Lymphocytes # (Auto) 1.2 x10^3/uL (1.0-4.8) Monocytes # (Auto) 0.3 x10^3/uL (0.0-1.1) Eosinophils # (Auto) 0.0 x10^3/uL (0.0-0.7) Basophils # (Auto) 0.0 x10^3/uL (0.0-0.2) Sodium Level 136 mmol/L (136-145) Potassium Level 4.5 mmol/L (3.5-5.1) Chloride Level 97 mmol/L (98-107) Carbon Dioxide Level 27 mmol/L (21-32) Anion Gap 12 (6-14) Blood Urea Nitrogen 13 mg/dL (8-26) Creatinine 0.9 mg/dL (0.7-1.3) Estimated GFR (Cockcroft-Gault) 113.1 BUN/Creatinine Ratio 14 (6-20) Glucose Level 406 mg/dL (70-99) Calcium Level 8.8 mg/dL (8.5-10.1) Total Bilirubin 1.5 mg/dL (0.2-1.0) Aspartate Amino Transf (AST/SGOT) 641 U/L (15-37) Alanine Aminotransferase (ALT/SGPT) 2737 U/L (16-63) Alkaline Phosphatase 158 U/L (46-116) Total Protein 6.4 g/dL (6.4-8.2) Albumin 3.4 g/dL (3.4-5.0) Albumin/Globulin Ratio 1.1 (1.0-1.7) Lipase 153 U/L (73-393) Acetone Level Neg (NEG) Bedside Venous pH 7.38 (7.32-7.42) Bedside Venous pCO2 45 mmHg (41-51) Bedside Venous pO2 71 mmHg (20-40) Venous Blood HCO3 27 mmol/L (24-28) POC Venous O2 Saturation (Dana) 94 % Bedside FiO2 21 Direct Bilirubin 0.8 mg/dL (0.0-0.2) Gamma Glutamyl Transpeptidase 785 U/L (10-85) Acetaminophen Level < 2 mcg/ml (10-30) Acetaminophen Last Dose Date Acetaminophen Last Dose Time Hepatitis A IgM Antibody Nonreactive (Nonreactive) Hepatitis B Surface Antigen Nonreactive (Nonreactive) Hepatitis B Core IgM Antibody Nonreactive (Nonreactive) Hepatitis C IgG Antibody Nonreactive (Nonreactive) Urine Collection Type Unknown Urine Color Yellow Urine Clarity Clear Urine pH 6.5 (<5.0-8.0) Urine Specific [place] >=1.030 (1.000-1.030) Urine Protein Negative mg/dL (NEG-TRACE) Urine Glucose (UA) >=1000 mg/dL (NEG) Urine Ketones (Stick) Trace mg/dL (NEG) Urine Blood Negative (NEG) Urine Nitrite Negative (NEG) Urine Bilirubin Negative (NEG) Urine Urobilinogen Dipstick 1.0 mg/dL (0.2 mg/dL) Urine Leukocyte Esterase Negative (NEG) Urine RBC 0 /HPF (0-2) Urine WBC Occ /HPF (0-4) Urine Squamous Epithelial Cells Occ /LPF Urine Bacteria 0 /HPF (0-FEW) Test 06/17/21 13:52 06/17/21 17:40 06/17/21 20:23 06/17/21 20:58 Glucose (Fingerstick) 135 mg/dL (70-99) 490 mg/dL (70-99) 549 mg/dL (70-99) 589 mg/dL (70-99) Test 06/17/21 22:44 06/18/21 02:03 06/18/21 06:40 06/18/21 07:39 Glucose (Fingerstick) 325 mg/dL (70-99) 169 mg/dL (70-99) 279 mg/dL (70-99) White Blood Count 3.7 x10^3/uL (4.0-11.0) Red Blood Count 4.14 x10^6/uL (4.30-5.70) Hemoglobin 13.1 g/dL (13.0-17.5) Hematocrit 38.6 % (39.0-53.0) Mean Corpuscular Volume 93 fL (79-100) Mean Corpuscular Hemoglobin 32 pg (25-35) Mean Corpuscular Hemoglobin Concent 34 g/dL (31-37) Red Cell Distribution Width 12.9 % (11.5-14.5) Platelet Count 142 x10^3/uL (140-400) Neutrophils (%) (Auto) 57 % (31-73) Lymphocytes (%) (Auto) 32 % (24-48) Monocytes (%) (Auto) 9 % (0-9) Eosinophils (%) (Auto) 1 % (0-3) Basophils (%) (Auto) 1 % (0-3) Neutrophils # (Auto) 2.1 x10^3/uL (1.8-7.7) Lymphocytes # (Auto) 1.2 x10^3/uL (1.0-4.8) Monocytes # (Auto) 0.3 x10^3/uL (0.0-1.1) Eosinophils # (Auto) 0.0 x10^3/uL (0.0-0.7) Basophils # (Auto) 0.0 x10^3/uL (0.0-0.2) Sodium Level 141 mmol/L (136-145) Potassium Level 3.7 mmol/L (3.5-5.1) Chloride Level 104 mmol/L (98-107) Carbon Dioxide Level 28 mmol/L (21-32) Anion Gap 9 (6-14) Blood Urea Nitrogen 14 mg/dL (8-26) Creatinine 0.9 mg/dL (0.7-1.3) Estimated GFR (Cockcroft-Gault) 113.1 BUN/Creatinine Ratio 16 (6-20) Glucose Level 231 mg/dL (70-99) Calcium Level 8.2 mg/dL (8.5-10.1) Total Bilirubin 0.6 mg/dL (0.2-1.0) Aspartate Amino Transf (AST/SGOT) 223 U/L (15-37) Alanine Aminotransferase (ALT/SGPT) 1667 U/L (16-63) Alkaline Phosphatase 124 U/L (46-116) Lactate Dehydrogenase 183 U/L (85-227) Creatine Kinase 40 U/L (39-308) Total Protein 5.7 g/dL (6.4-8.2) Albumin 2.7 g/dL (3.4-5.0) Albumin/Globulin Ratio 0.9 (1.0-1.7) Laboratory Tests Test 06/17/21 13:52 06/17/21 17:40 06/17/21 20:23 06/17/21 20:58 Glucose (Fingerstick) 135 mg/dL (70-99) 490 mg/dL (70-99) 549 mg/dL (70-99) 589 mg/dL (70-99) Test 06/17/21 22:44 06/18/21 02:03 06/18/21 06:40 06/18/21 07:39 Glucose (Fingerstick) 325 mg/dL (70-99) 169 mg/dL (70-99) 279 mg/dL (70-99) White Blood Count 3.7 x10^3/uL (4.0-11.0) Red Blood Count 4.14 x10^6/uL (4.30-5.70) Hemoglobin 13.1 g/dL (13.0-17.5) Hematocrit 38.6 % (39.0-53.0) Mean Corpuscular Volume 93 fL (79-100) Mean Corpuscular Hemoglobin 32 pg (25-35) Mean Corpuscular Hemoglobin Concent 34 g/dL (31-37) Red Cell Distribution Width 12.9 % (11.5-14.5) Platelet Count 142 x10^3/uL (140-400) Neutrophils (%) (Auto) 57 % (31-73) Lymphocytes (%) (Auto) 32 % (24-48) Monocytes (%) (Auto) 9 % (0-9) Eosinophils (%) (Auto) 1 % (0-3) Basophils (%) (Auto) 1 % (0-3) Neutrophils # (Auto) 2.1 x10^3/uL (1.8-7.7) Lymphocytes # (Auto) 1.2 x10^3/uL (1.0-4.8) Monocytes # (Auto) 0.3 x10^3/uL (0.0-1.1) Eosinophils # (Auto) 0.0 x10^3/uL (0.0-0.7) Basophils # (Auto) 0.0 x10^3/uL (0.0-0.2) Sodium Level 141 mmol/L (136-145) Potassium Level 3.7 mmol/L (3.5-5.1) Chloride Level 104 mmol/L (98-107) Carbon Dioxide Level 28 mmol/L (21-32) Anion Gap 9 (6-14) Blood Urea Nitrogen 14 mg/dL (8-26) Creatinine 0.9 mg/dL (0.7-1.3) Estimated GFR (Cockcroft-Gault) 113.1 BUN/Creatinine Ratio 16 (6-20) Glucose Level 231 mg/dL (70-99) Calcium Level 8.2 mg/dL (8.5-10.1) Total Bilirubin 0.6 mg/dL (0.2-1.0) Aspartate Amino Transf (AST/SGOT) 223 U/L (15-37) Alanine Aminotransferase (ALT/SGPT) 1667 U/L (16-63) Alkaline Phosphatase 124 U/L (46-116) Lactate Dehydrogenase 183 U/L (85-227) Creatine Kinase 40 U/L (39-308) Total Protein 5.7 g/dL (6.4-8.2) Albumin 2.7 g/dL (3.4-5.0) Albumin/Globulin Ratio 0.9 (1.0-1.7) VTE Prophylaxis Ordered VTE Prophylaxis Devices: No VTE Pharmacological Prophylaxi: No Assessment/Plan Assessment/Plan abdominal pain with nausea poss Dm1, gastroparesis Insulin dependent Dm1, non-compliance, weight loss acute transaminitis, LFT up with ALT> Ast, GGT up, no EtOH use reported hepatitis panel neg, other viral causes posssible Justifications for Admission Other Justification EBONY TUCKER MD Jun 18, 2021 10:53
[2021-06-18 11:00] VITALS: BP 113/68
[2021-06-18] MEDS ORDERED: IV NORMAL SALINE 1000ML BAG 1,000 ML IV ONE (11:00)
[2021-06-18] MEDS: INSULIN GLARGINE SYRINGE. SQ SCH (12:24)
[2021-06-18 15:00] VITALS: BP 110/82
[2021-06-18 19:00] VITALS: BP 98/65
[2021-06-18 23:00] VITALS: BP 126/83
[2021-06-19 03:00] VITALS: BP 118/81
[2021-06-19 07:00] VITALS: BP 118/78
[2021-06-19 07:29] LABS: BASO % 1 % (0-3); EOS # 0.1 x10^3/uL (0.0-0.7); EOS % 2 % (0-3); HEMOGLOBIN 12.8 g/dL (13.0-17.5); LYMPH # 1.5 x10^3/uL (1.0-4.8); LYMPH % 37 % (24-48); MEAN CORPUSCULAR HEMOGLOBIN 31 pg (25-35); MEAN CORPUSCULAR HGB CONC 34 g/dL (31-37); MEAN CORPUSCULAR VOLUME 93 fL (79-100); MONO # 0.4 x10^3/uL (0.0-1.1); MONO % 10 % (0-9); NEUT # 2.1 x10^3/uL (1.8-7.7); NEUT % 51 % (31-73); PLATELET COUNT 153 x10^3/uL (140-400); RED BLOOD COUNT 4.08 x10^6/uL (4.30-5.70); WHITE BLOOD COUNT 4.2 x10^3/uL (4.0-11.0)
[2021-06-19 07:35] LABS: ALBUMIN 2.7 g/dL (3.4-5.0); ALBUMIN/GLOBULIN RATIO 0.9 (1.0-1.7); CALCIUM 8.3 mg/dL (8.5-10.1); GFR 100.1; POTASSIUM 3.9 mmol/L (3.5-5.1); TOTAL BILIRUBIN 0.3 mg/dL (0.2-1.0); TOTAL PROTEIN 5.8 g/dL (6.4-8.2)
[2021-06-19] MEDS: INSULIN GLARGINE SYRINGE. SQ SCH (09:43)
[2021-06-19] MEDS: INSULIN LISPRO 300 UNITS/3 ML VIAL. SQ SCH ×5 (09:44→17:46)
--- NOTE | 2021-06-19 10:12 | NUR ---
SW following. Discussed with RN, pt from home with family, room air, ada diet. GI following. RN advised no SW needs at this time. SW will continue to follow.
--- NOTE | 2021-06-19 10:52 | PDOC ---
Date of Service: DATE: 06/19/21 TIME: 10:44 Subjective: Subjective: Feels better, asks about his liver. Tolerating diet, denies abdominal pain. Objective: Vital Signs: Vital Signs Date Time Temp Pulse Resp B/P (MAP) Pulse Ox O2 Delivery O2 Flow Rate FiO2 06/19/21 07:00 97.7 61 16 118/78 (91) 94 Room Air 97.7 Labs: Laboratory Tests Test 06/18/21 11:25 06/18/21 17:49 06/18/21 20:51 06/19/21 06:10 Glucose (Fingerstick) 389 mg/dL 360 mg/dL 241 mg/dL White Blood Count 4.2 x10^3/uL Red Blood Count 4.08 x10^6/uL Hemoglobin 12.8 g/dL Hematocrit 38.0 % Mean Corpuscular Volume 93 fL Mean Corpuscular Hemoglobin 31 pg Mean Corpuscular Hemoglobin Concent 34 g/dL Red Cell Distribution Width 13.0 % Platelet Count 153 x10^3/uL Neutrophils (%) (Auto) 51 % Lymphocytes (%) (Auto) 37 % Monocytes (%) (Auto) 10 % Eosinophils (%) (Auto) 2 % Basophils (%) (Auto) 1 % Neutrophils # (Auto) 2.1 x10^3/uL Lymphocytes # (Auto) 1.5 x10^3/uL Monocytes # (Auto) 0.4 x10^3/uL Eosinophils # (Auto) 0.1 x10^3/uL Basophils # (Auto) 0.0 x10^3/uL Sodium Level 141 mmol/L Potassium Level 3.9 mmol/L Chloride Level 104 mmol/L Carbon Dioxide Level 31 mmol/L Anion Gap 6 Blood Urea Nitrogen 9 mg/dL Creatinine 1.0 mg/dL Estimated GFR (Cockcroft-Gault) 100.1 BUN/Creatinine Ratio 9 Glucose Level 248 mg/dL Calcium Level 8.3 mg/dL Total Bilirubin 0.3 mg/dL Aspartate Amino Transf (AST/SGOT) 113 U/L Alanine Aminotransferase (ALT/SGPT) 1342 U/L Alkaline Phosphatase 129 U/L Total Protein 5.8 g/dL Albumin 2.7 g/dL Albumin/Globulin Ratio 0.9 Test 06/19/21 08:12 Glucose (Fingerstick) 258 mg/dL Imaging: CT A/P Impression: 1. No acute abnormality in the abdomen and pelvis. 2. Possible trace fluid in the pelvis, nonspecific. 3. Hepatic steatosis. Abd US IMPRESSION: Mild hepatic steatosis. PE: GEN: NAD LUNGS: CTAB HEART: RRR ABD: S/ND/NT NEURO/PSYCH: A & O 3 A/P: Transaminitis - AST and ALT better, Hep negative - unclear cause, ?ischemia Hepatic steatosis DM - A1c pending -- Checking additional labs, monitor LFTs. Justicifation of Admission Dx: Justifications for Admission: Justification of Admission Dx: Yes SEPIDEH HERNANDEZ Jun 19, 2021 10:52
--- NOTE | 2021-06-19 12:38 | PDOC ---
[employer] PROGRESS NOTE Date of Service DOS: DATE: 06/19/21 TIME: 12:26 Chief Complaint Chief Complaint abdominal pain with nausea poss Dm1, gastroparesis Insulin dependent Dm1, non-compliance, weight loss acute transaminitis, LFT up with ALT> Ast, GGT up, no EtOH use reported hepatitis panel neg, other viral causes possible, denies malaria history History of Present Illness History of Present Illness MR. Roper is a 41-year-old [place] male with a history of insulin- dependent diabetes, has not been taking insulin for over a year. Has not been to a doctor, had felt well, but has lost some weight and is very thin. 06/18: He was admitted with acute complain tof of nausea, with new vomiting a couple of times but he now thinks he feels better and would like to try to eat more, Patient is alert and pleasantly and appropriately interactive and in no acute distress 06/19: Pain improving. Appetite improved. Still with a little bit of nausea. Notes he did not have diagnosed with diabetes when he moved from [facility] to [facility] and [place] to [place] back in [place] he was diagnosed with diabetes at that time. Been hospitalized at [facility] in 2020 for similar symptoms. Notes his glucometer is broken. He follows at [facility] for primary care. Vitals/I&O Vitals/I&O: Vital Signs Date Time Temp Pulse Resp B/P (MAP) Pulse Ox O2 Delivery O2 Flow Rate FiO2 06/19/21 08:00 Room Air 06/19/21 07:00 97.7 61 16 118/78 (91) 94 97.7 Physical Exam General: Alert, Oriented X3, Cooperative, No acute distress Heart: Regular rate, Normal S1, Normal S2 Abdomen: Normal bowel sounds, Soft Extremities: No edema, Normal pulses Skin: No rashes, No significant lesion Labs Labs: Laboratory Tests Test 06/18/21 17:49 06/18/21 20:51 06/19/21 06:10 06/19/21 08:12 Glucose (Fingerstick) 360 mg/dL (70-99) 241 mg/dL (70-99) 258 mg/dL (70-99) White Blood Count 4.2 x10^3/uL (4.0-11.0) Red Blood Count 4.08 x10^6/uL (4.30-5.70) Hemoglobin 12.8 g/dL (13.0-17.5) Hematocrit 38.0 % (39.0-53.0) Mean Corpuscular Volume 93 fL (79-100) Mean Corpuscular Hemoglobin 31 pg (25-35) Mean Corpuscular Hemoglobin Concent 34 g/dL (31-37) Red Cell Distribution Width 13.0 % (11.5-14.5) Platelet Count 153 x10^3/uL (140-400) Neutrophils (%) (Auto) 51 % (31-73) Lymphocytes (%) (Auto) 37 % (24-48) Monocytes (%) (Auto) 10 % (0-9) Eosinophils (%) (Auto) 2 % (0-3) Basophils (%) (Auto) 1 % (0-3) Neutrophils # (Auto) 2.1 x10^3/uL (1.8-7.7) Lymphocytes # (Auto) 1.5 x10^3/uL (1.0-4.8) Monocytes # (Auto) 0.4 x10^3/uL (0.0-1.1) Eosinophils # (Auto) 0.1 x10^3/uL (0.0-0.7) Basophils # (Auto) 0.0 x10^3/uL (0.0-0.2) Sodium Level 141 mmol/L (136-145) Potassium Level 3.9 mmol/L (3.5-5.1) Chloride Level 104 mmol/L (98-107) Carbon Dioxide Level 31 mmol/L (21-32) Anion Gap 6 (6-14) Blood Urea Nitrogen 9 mg/dL (8-26) Creatinine 1.0 mg/dL (0.7-1.3) Estimated GFR (Cockcroft-Gault) 100.1 BUN/Creatinine Ratio 9 (6-20) Glucose Level 248 mg/dL (70-99) Calcium Level 8.3 mg/dL (8.5-10.1) Total Bilirubin 0.3 mg/dL (0.2-1.0) Aspartate Amino Transf (AST/SGOT) 113 U/L (15-37) Alanine Aminotransferase (ALT/SGPT) 1342 U/L (16-63) Alkaline Phosphatase 129 U/L (46-116) Creatine Kinase 39 U/L (39-308) Total Protein 5.8 g/dL (6.4-8.2) Albumin 2.7 g/dL (3.4-5.0) Albumin/Globulin Ratio 0.9 (1.0-1.7) Test 06/19/21 11:42 Glucose (Fingerstick) 326 mg/dL (70-99) Assessment and Plan Assessmemt and Plan Problems Medical Problems: (1) Cholestasis Status: Acute (2) Hyperglycemia due to diabetes mellitus Status: Acute (3) Inguinal lymphadenopathy Status: Acute (4) Transaminasemia Status: Acute Comment Review of Relevant I have reviewed the following items william (where applicable) has been applied. Justifications for Admission Other Justification HEYDI OMER MD Jun 19, 2021 12:38
[2021-06-19 13:50] VITALS: BP 115/78
[2021-06-19 16:14] VITALS: BP 121/77
[2021-06-19 19:00] VITALS: BP 125/81
[2021-06-19] MEDS ORDERED: INSULIN GLARGINE SYRINGE. SQ SCH (21:00)
[2021-06-19 23:00] VITALS: BP 120/79
[2021-06-19 23:11] LABS: HEMOGLOBIN A1C 13.4 % (4.8-5.6)
[2021-06-20 03:00] VITALS: BP 124/87
[2021-06-20 06:21] LABS: ALBUMIN 2.7 g/dL (3.4-5.0); CALCIUM 8.4 mg/dL (8.5-10.1); CREATININE 0.9 mg/dL (0.7-1.3); GFR 113.1; POTASSIUM 3.8 mmol/L (3.5-5.1); TOTAL BILIRUBIN 0.3 mg/dL (0.2-1.0); TOTAL PROTEIN 5.5 g/dL (6.4-8.2)
[2021-06-20 06:24] LABS: DIRECT BILIRUBIN 0.2 mg/dL (0.0-0.2)
[2021-06-20 07:00] VITALS: BP 118/77
[2021-06-20] MEDS: INSULIN LISPRO 300 UNITS/3 ML VIAL. SQ SCH ×4 (08:28→12:09)
--- NOTE | 2021-06-20 10:01 | PDOC ---
[employer] PROGRESS NOTE Date of Service DOS: DATE: 06/20/21 TIME: 09:46 Chief Complaint Chief Complaint abdominal pain with nausea poss Dm1, gastroparesis Insulin dependent Dm1, non-compliance, weight loss acute transaminitis, LFT up with ALT> Ast, GGT up, no EtOH use reported hepatitis panel neg, other viral causes possible, denies malaria history History of Present Illness History of Present Illness MR. Roper is a 41-year-old [place] male with a history of insulin- dependent diabetes, has not been taking insulin for over a year. Has not been to a doctor, had felt well, but has lost some weight and is very thin. 06/18: He was admitted with acute complain tof of nausea, with new vomiting a couple of times but he now thinks he feels better and would like to try to eat more, Patient is alert and pleasantly and appropriately interactive and in no acute distress 06/19: Pain improving. Appetite improved. Still with a little bit of nausea. Notes he did not have diagnosed with diabetes when he moved from [facility] to [facility] and [place] to [place] back in [place] he was diagnosed with diabetes at that time. Been hospitalized at [facility] in 2019 for similar symptoms. Notes his glucometer is broken. He follows at [facility] for primary care. 06/20: Pain resolved. Appetite improved. Glucose 161 today. Discussed with patient family bedside to continue insulin at home. LFTs have been treated trending downward. His outpatient follow-up to monitor his trend. Vitals/I&O Vitals/I&O: Vital Signs Date Time Temp Pulse Resp B/P (MAP) Pulse Ox O2 Delivery O2 Flow Rate FiO2 06/20/21 08:05 Room Air 06/20/21 07:00 98.3 50 20 118/77 (91) 97 98.3 I & O 06/19/21 06/19/21 06/20/21 15:00 23:00 07:00 Intake Total 480 ml Balance 480 ml Physical Exam General: Alert, Oriented X3, Cooperative, No acute distress Heart: Regular rate, Normal S1, Normal S2 Abdomen: Normal bowel sounds, Soft Extremities: No edema, Normal pulses Skin: No rashes, No significant lesion Labs Labs: Laboratory Tests Test 06/19/21 11:42 06/19/21 16:29 06/19/21 21:04 06/20/21 04:10 Glucose (Fingerstick) 326 mg/dL (70-99) 274 mg/dL (70-99) 360 mg/dL (70-99) Sodium Level 142 mmol/L (136-145) Potassium Level 3.8 mmol/L (3.5-5.1) Chloride Level 102 mmol/L (98-107) Carbon Dioxide Level 33 mmol/L (21-32) Anion Gap 7 (6-14) Blood Urea Nitrogen 10 mg/dL (8-26) Creatinine 0.9 mg/dL (0.7-1.3) Estimated GFR (Cockcroft-Gault) 113.1 BUN/Creatinine Ratio 11 (6-20) Glucose Level 195 mg/dL (70-99) Calcium Level 8.4 mg/dL (8.5-10.1) Total Bilirubin 0.3 mg/dL (0.2-1.0) Direct Bilirubin 0.2 mg/dL (0.0-0.2) Aspartate Amino Transf (AST/SGOT) 78 U/L (15-37) Alanine Aminotransferase (ALT/SGPT) 1128 U/L (16-63) Alkaline Phosphatase 119 U/L (46-116) Total Protein 5.5 g/dL (6.4-8.2) Albumin 2.7 g/dL (3.4-5.0) Albumin/Globulin Ratio 1.0 (1.0-1.7) Test 06/20/21 07:16 Glucose (Fingerstick) 161 mg/dL (70-99) Assessment and Plan Assessmemt and Plan Problems Medical Problems: (1) Cholestasis Status: Acute (2) Hyperglycemia due to diabetes mellitus Status: Acute (3) Inguinal lymphadenopathy Status: Acute (4) Transaminasemia Status: Acute Comment Review of Relevant I have reviewed the following items william (where applicable) has been applied. Medications: Current Medications Medications (Trade) Dose Ordered Sig/Carlitos Route PRN Reason Start Time Stop Time Status Last Admin Dose Admin Insulin Glargine (Lantus Syringe) 20 unit QHS SQ 06/19/21 21:00 06/19/21 21:42 Insulin Human Lispro (HumaLOG) 8 units TIDAC SQ 06/19/21 16:30 06/20/21 08:28 Justifications for Admission Other Justification HEYDI OMER MD Jun 20, 2021 10:01
[2021-06-20] MEDS ORDERED: INSU100I46 SQ (10:05)
[2021-06-20] MEDS ORDERED: INSU100I13 SQ (10:05)
--- NOTE | 2021-06-20 10:17 | PDOC ---
Date of Service: DATE: 06/20/21 TIME: 10:12 Subjective: Subjective: No GI complaints - no abd pain, tolerating diet - says blood sugar was low this morning. Wants to know what went wrong with his liver. Objective: Vital Signs: Vital Signs Date Time Temp Pulse Resp B/P (MAP) Pulse Ox O2 Delivery O2 Flow Rate FiO2 06/20/21 08:05 Room Air 06/20/21 07:00 98.3 50 20 118/77 (91) 97 98.3 Labs: Laboratory Tests Test 06/19/21 11:42 06/19/21 16:29 06/19/21 21:04 06/20/21 04:10 Glucose (Fingerstick) 326 mg/dL 274 mg/dL 360 mg/dL Sodium Level 142 mmol/L Potassium Level 3.8 mmol/L Chloride Level 102 mmol/L Carbon Dioxide Level 33 mmol/L Anion Gap 7 Blood Urea Nitrogen 10 mg/dL Creatinine 0.9 mg/dL Estimated GFR (Cockcroft-Gault) 113.1 BUN/Creatinine Ratio 11 Glucose Level 195 mg/dL Calcium Level 8.4 mg/dL Total Bilirubin 0.3 mg/dL Direct Bilirubin 0.2 mg/dL Aspartate Amino Transf (AST/SGOT) 78 U/L Alanine Aminotransferase (ALT/SGPT) 1128 U/L Alkaline Phosphatase 119 U/L Total Protein 5.5 g/dL Albumin 2.7 g/dL Albumin/Globulin Ratio 1.0 Test 06/20/21 07:16 Glucose (Fingerstick) 161 mg/dL PE: GEN: NAD - friends/family present LUNGS: CTAB HEART: RRR ABD: S/ND/NT NEURO/PSYCH: A & O 3 A/P: Transaminitis - favorable trend - unclear cause Hepatic steatosis DM (A1c 13) -- Encouraged more aggressive management of diabetes. Has DC orders - would monitor LFTs as outpt. Justicifation of Admission Dx: Justifications for Admission: Justification of Admission Dx: Yes ARCELIA-SEPIDEH AGUIAR Jun 20, 2021 10:17
[2021-06-20 11:00] VITALS: BP 109/74
--- NOTE | 2021-06-20 11:05 | PDOC3 ---
Discharge Summary Visit Information Date of Admission: Jun 17, 2021 Date of Discharge: Jun 20, 2021 Admitting Diagnosis: Intractable abdominal pain, transaminitis, Hyperglycemia Final Diagnosis Problems Medical Problems: (1) Cholestasis Status: Acute (2) Hyperglycemia due to diabetes mellitus Status: Acute (3) Inguinal lymphadenopathy Status: Acute (4) Transaminasemia Status: Acute Brief Hospital Course Allergies Allergies Coded Allergies Type Severity Reaction Last Updated Verified No Known Drug Allergies 06/17/21 No Vital Signs Vital Signs Date Time Temp Pulse Resp B/P (MAP) Pulse Ox O2 Delivery O2 Flow Rate FiO2 06/20/21 08:05 Room Air 06/20/21 07:00 98.3 50 20 118/77 (91) 97 98.3 Lab Results Laboratory Tests Test 06/18/21 11:25 06/18/21 17:49 06/18/21 20:51 06/19/21 06:10 Glucose (Fingerstick) 389 mg/dL (70-99) 360 mg/dL (70-99) 241 mg/dL (70-99) White Blood Count 4.2 x10^3/uL (4.0-11.0) Red Blood Count 4.08 x10^6/uL (4.30-5.70) Hemoglobin 12.8 g/dL (13.0-17.5) Hematocrit 38.0 % (39.0-53.0) Mean Corpuscular Volume 93 fL (79-100) Mean Corpuscular Hemoglobin 31 pg (25-35) Mean Corpuscular Hemoglobin Concent 34 g/dL (31-37) Red Cell Distribution Width 13.0 % (11.5-14.5) Platelet Count 153 x10^3/uL (140-400) Neutrophils (%) (Auto) 51 % (31-73) Lymphocytes (%) (Auto) 37 % (24-48) Monocytes (%) (Auto) 10 % (0-9) Eosinophils (%) (Auto) 2 % (0-3) Basophils (%) (Auto) 1 % (0-3) Neutrophils # (Auto) 2.1 x10^3/uL (1.8-7.7) Lymphocytes # (Auto) 1.5 x10^3/uL (1.0-4.8) Monocytes # (Auto) 0.4 x10^3/uL (0.0-1.1) Eosinophils # (Auto) 0.1 x10^3/uL (0.0-0.7) Basophils # (Auto) 0.0 x10^3/uL (0.0-0.2) Sodium Level 141 mmol/L (136-145) Potassium Level 3.9 mmol/L (3.5-5.1) Chloride Level 104 mmol/L (98-107) Carbon Dioxide Level 31 mmol/L (21-32) Anion Gap 6 (6-14) Blood Urea Nitrogen 9 mg/dL (8-26) Creatinine 1.0 mg/dL (0.7-1.3) Estimated GFR (Cockcroft-Gault) 100.1 BUN/Creatinine Ratio 9 (6-20) Glucose Level 248 mg/dL (70-99) Hemoglobin A1c 13.4 % (4.8-5.6) Calcium Level 8.3 mg/dL (8.5-10.1) Total Bilirubin 0.3 mg/dL (0.2-1.0) Aspartate Amino Transf (AST/SGOT) 113 U/L (15-37) Alanine Aminotransferase (ALT/SGPT) 1342 U/L (16-63) Alkaline Phosphatase 129 U/L (46-116) Creatine Kinase 39 U/L (39-308) Total Protein 5.8 g/dL (6.4-8.2) Albumin 2.7 g/dL (3.4-5.0) Albumin/Globulin Ratio 0.9 (1.0-1.7) Test 06/19/21 08:12 06/19/21 11:42 06/19/21 16:29 06/19/21 21:04 Glucose (Fingerstick) 258 mg/dL (70-99) 326 mg/dL (70-99) 274 mg/dL (70-99) 360 mg/dL (70-99) Test 06/20/21 04:10 06/20/21 07:16 Sodium Level 142 mmol/L (136-145) Potassium Level 3.8 mmol/L (3.5-5.1) Chloride Level 102 mmol/L (98-107) Carbon Dioxide Level 33 mmol/L (21-32) Anion Gap 7 (6-14) Blood Urea Nitrogen 10 mg/dL (8-26) Creatinine 0.9 mg/dL (0.7-1.3) Estimated GFR (Cockcroft-Gault) 113.1 BUN/Creatinine Ratio 11 (6-20) Glucose Level 195 mg/dL (70-99) Calcium Level 8.4 mg/dL (8.5-10.1) Total Bilirubin 0.3 mg/dL (0.2-1.0) Direct Bilirubin 0.2 mg/dL (0.0-0.2) Aspartate Amino Transf (AST/SGOT) 78 U/L (15-37) Alanine Aminotransferase (ALT/SGPT) 1128 U/L (16-63) Alkaline Phosphatase 119 U/L (46-116) Total Protein 5.5 g/dL (6.4-8.2) Albumin 2.7 g/dL (3.4-5.0) Albumin/Globulin Ratio 1.0 (1.0-1.7) Glucose (Fingerstick) 161 mg/dL (70-99) Laboratory Tests Test 06/19/21 11:42 06/19/21 16:29 06/19/21 21:04 06/20/21 04:10 Glucose (Fingerstick) 326 mg/dL (70-99) 274 mg/dL (70-99) 360 mg/dL (70-99) Sodium Level 142 mmol/L (136-145) Potassium Level 3.8 mmol/L (3.5-5.1) Chloride Level 102 mmol/L (98-107) Carbon Dioxide Level 33 mmol/L (21-32) Anion Gap 7 (6-14) Blood Urea Nitrogen 10 mg/dL (8-26) Creatinine 0.9 mg/dL (0.7-1.3) Estimated GFR (Cockcroft-Gault) 113.1 BUN/Creatinine Ratio 11 (6-20) Glucose Level 195 mg/dL (70-99) Calcium Level 8.4 mg/dL (8.5-10.1) Total Bilirubin 0.3 mg/dL (0.2-1.0) Direct Bilirubin 0.2 mg/dL (0.0-0.2) Aspartate Amino Transf (AST/SGOT) 78 U/L (15-37) Alanine Aminotransferase (ALT/SGPT) 1128 U/L (16-63) Alkaline Phosphatase 119 U/L (46-116) Total Protein 5.5 g/dL (6.4-8.2) Albumin 2.7 g/dL (3.4-5.0) Albumin/Globulin Ratio 1.0 (1.0-1.7) Test 06/20/21 07:16 Glucose (Fingerstick) 161 mg/dL (70-99) Brief Hospital Course MR. Roper is a 41-year-old Sw[place]pe[place] male with a history of insulin- dependent diabetes, has not been taking insulin for over a year. Has not been to a doctor, had felt well, but has lost some weight and is very thin. 06/18: He was admitted with acute complain of of nausea, with new vomiting a couple of times but he now thinks he feels better and would like to try to eat more, Patient is alert and pleasantly and appropriately interactive and in no acute distress 06/19: Pain improving. Appetite improved. Still with a little bit of nausea. Notes he did not have diagnosed with diabetes when he moved from [facility] to [facility] and immigrated to [place] back in [place] he was diagnosed with diabetes at that time. Been hospitalized at [facility] in 2019 for similar symptoms. Notes his glucometer is broken. He follows at [facility] for primary care. 06/20: Pain resolved. Appetite improved. Glucose 161 today. Discussed with patient family bedside to continue insulin at home. LFTs have been treated trending downward. His outpatient follow-up to monitor his trend. HbA1c 13.4, AST 78, ALT 1128, alkaline phosphatase 119, bilirubin 0.3, albumin 2.7, hepatitis panel negative, chlamydia and gonorrhea PCR negative Intense diabetic teaching undertaken bedside with patient and family. Will go home on 20 units of glargine insulin nightly and 8 units lispro 3 times daily with meals with high sliding scale BG <70 - DO NOT ADMINISTER INSULIN BG 70-150 0 u BG 151-200 - 4u BG 201-250 - 5u BG 251-300 - 7u BG 301-350 - 9u Consults: Gastroenterology Problem list: abdominal pain with nausea Gastroparesis Insulin dependent Dm1, non-compliance, weight loss acute transaminitis, LFT up with ALT> Ast, GGT up, no EtOH use reported hepatitis panel neg, other viral causes possible, denies malaria history Greater than 30 minutes spent on d/c home with self care. Discharge Information Condition at Discharge: Improved Follow Up: Weeks (1) Disposition/Orders: D/C to Home Scheduled Insulin Glargine,Hum.rec.anlog (Lantus Solostar) 100 Unit/1 Ml Insuln.pen, 20 UNIT SQ QHS for Diabetes for 30 Days, #15 Ref 5 Prescribed by: HEYDI OMER MD on 06/20/21 1005 Insulin Lispro (Insulin Lispro Kwikpen U-100) 100 Unit/1 Ml Insuln.pen, 8 UNIT SQ TIDACHC for Diabetes for 30 Days, #3 Ref 4 Prescribed by: HEYDI OMER MD on 06/20/21 1005 Justicifation of Admission Dx: Justifications for Admission: Justification of Admission Dx: Yes HEYDI OMER MD Jun 20, 2021 11:05
--- NOTE | 2021-06-20 12:52 | NUR ---
Discharge Note: GISELA LOUIS [address] [place] [address] Discharge instructions and discharge home medications reviewed with Patient and a copy given. All questions have been answered and understanding verbalized. The following instructions and handouts were given: Diet, activity, medication list and follow up instructions provided to patient. Patient verbalized understanding of medications and directions. Discontinued lines and drains: Peripheral IV discontinued and catheter intact. Patient discharged to Home or Self Care with Family Member via [facility]
[2021-06-20 19:42] LABS: EBNA IGG <18.0 U/mL (0.0-17.9)
== END 2021-06-20 12:50 | disposition home or self-care (01) | DRG 73 ==
LOC: ER 00:07 → ED HOLD 08:18 → 4 NORTH 08:18
PROVIDERS: ADMIT Internal Medicine; ATTEND Internal Medicine
DX: E10.43 Type 1 diabetes mellitus with diabetic autonomic (poly)neuropathy (principal); K83.1 Obstruction of bile duct; Z68.1 Body mass index [BMI] 19.9 or less, adult; K31.84 Gastroparesis; K76.0 Fatty (change of) liver, not elsewhere classified; Z79.4 Long term (current) use of insulin; Z87.891 Personal history of nicotine dependence; Z91.14 Patient's other noncompliance with medication regimen; Z91.19 Patient's noncompliance with other medical treatment and regimen; R59.0 Localized enlarged lymph nodes; R63.4 Abnormal weight loss
CPT/HCPCS: 36415; 74177; 76705; 80053; 80329; 81001; 82010; 82248; 82550; 82803; 82962; 82977; 83036; 83615; 83690; 85025; 86644; 86645; 86664; 86665; 86705; 86709; 86803; 87340; 87491; 87591; 96361; 96372; 96374; 96375; J1815; J1885; J2405; J7030; Q9967; 99285-25; G0378; G0480

== ENCOUNTER 2021-09-18 13:08 | Emergency (ER) | payer OTHER ==
[~2021-09-18] VITALS: Ht 172.7 cm; Wt 73.0 kg
[~2021-09-18 13:08] MED LIST: INSU100I13 SQ; INSU100I46 SQ
[2021-09-18] MEDS ORDERED: IV NORMAL SALINE 1000ML BAG 1,000 ML IV ONE (16:15)
[2021-09-18 16:31] LABS: BARBITURATES NEG (NEG); BENZODIAZEPINES NEG (NEG); CANNABINOIDS NEG (NEG); COCAINE NEG (NEG); METHADONE NEG (NEG); OPIATES NEG (NEG); PHENCYCLIDINE NEG (NEG)
--- NOTE | 2021-09-18 16:36 | RAD ---
Single view of the chest. 09/18/2021 4:13 PM Indication: Weight loss Comparison: None Findings: There is no focal consolidation. There is no pleural effusion or pneumothorax. The cardiome diastinal silhouette and pulmonary vasculature are within normal limits. No acute osseous abnormaliti es are seen. Impression: No evidence of acute cardiopulmonary process. Electronically signed by: Fareed Garcia MD (09/18/2021 4:33 PM) [id number]
[2021-09-18 16:38] LABS: AMORPHOUS SEDIMENT,UR PRESENT /HPF; BACTERIA,URINE 0 /HPF (0-FEW); BILIRUBIN,URINE NEGATIVE (NEG); CLARITY,URINE CLEAR; COLOR,URINE STRAW; NITRITE,URINE NEGATIVE (NEG); PROTEIN,URINE NEGATIVE (NEG-TRACE); RBC,URINE 0 /HPF (0-2); UROBILINOGEN,URINE 0.2 mg/dL (0.2 mg/dL); WBC,URINE 0 /HPF (0-4)
--- NOTE | 2021-09-18 16:48 | RAD ---
Examination: Bilateral venous Doppler Indication: Leg swelling Technique: Ultrasound evaluation of the bilateral lower extremities was performed from the groin to t he upper calf with vela scale, spectral and color doppler evaluation. Comparison: None Findings: There is normal venous flow and compressibility of bilateral common femoral veins, femoral veins, popliteal veins, and visualized proximal calf veins. Impression: No evidence for deep vein thrombosis of bilateral lower extremities from the level of the calf veins to the groins. Electronically signed by: Herbie Bragg MD (09/18/2021 4:46 PM) MARIAM
[2021-09-18 16:53] LABS: AMPHETAMINE/METHAMPHETAMINE NEG (NEG)
[2021-09-18 17:35] LABS: BASO % 1 % (0-3); EOS % 1 % (0-3); HEMATOCRIT 40.8 % (39.0-53.0); LYMPH # 2.1 x10^3/uL (1.0-4.8); LYMPH % 44 % (24-48); MEAN CORPUSCULAR HEMOGLOBIN 30 pg (25-35); MEAN CORPUSCULAR HGB CONC 34 g/dL (31-37); MEAN CORPUSCULAR VOLUME 89 fL (79-100); MONO # 0.3 x10^3/uL (0.0-1.1); MONO % 6 % (0-9); NEUT # 2.3 x10^3/uL (1.8-7.7); NEUT % 49 % (31-73); PLATELET COUNT 225 x10^3/uL (140-400); RED BLOOD COUNT 4.59 x10^6/uL (4.30-5.70); WHITE BLOOD COUNT 4.8 x10^3/uL (4.0-11.0)
[2021-09-18 19:57] LABS: CALCIUM 8.5 mg/dL (8.5-10.1); CREATININE 0.6 mg/dL (0.7-1.3); GFR 149.2; POTASSIUM 4.5 mmol/L (3.5-5.1)
[2021-09-18 20:04] LABS: ALBUMIN 3.2 g/dL (3.4-5.0); ALBUMIN/GLOBULIN RATIO 0.9 (1.0-1.7); TOTAL BILIRUBIN 0.3 mg/dL (0.2-1.0); TOTAL PROTEIN 6.7 g/dL (6.4-8.2)
[2021-09-18 20:21] VITALS: BP 118/79
[2021-09-18] MEDS ORDERED: GABAPENTIN 300 MG CAPSULE. PO STA (20:21)
[2021-09-18] MEDS ORDERED: NAPR-514 PO (21:06)
[2021-09-18] MEDS ORDERED: CYCL10TA19 PO (21:06)
[2021-09-18] MEDS ORDERED: GABA300C18 PO (21:06)
--- NOTE | 2021-09-18 21:06 | PHYS DOC ---
Past Medical History Past Medical History: Diabetes-Type II (HARIKAKAIT Mondragon STRINGER MACHINE TENDER) Past Surgical History: No Surgical History (KAIT BROWN STRINGER MACHINE TENDER) Smoking Status: Unknown if ever smoked Alcohol Use: None (KEVINKAIT APRN) General Adult EDM: Chief Complaint: LOWER EXT PAIN HPI: HPI: Patient is a 41 year old Swahili speaking male with a history of diabetes type 2 presenting today from home. Patient is complaining of 6 out of 10 burning pain to bilateral lower extremities, symptoms have been going on for 1 month. Patient states the pain is worse when anything touches his feet lower extremities. Denies anything specifically relieving the pain. He states he was seen at [facility] 2 weeks ago for the same pain and was admitted. He states they did an extensive work-up and he was told there is nothing wrong with him apart from his diabetes. He states he has been using his insulin he is supposed to and his sugars are below 200. Patient also reports significant weight loss but this began in 2019 after he was diagnosed with diabetes. He states he has no appetite since then his diagnosis. Interpretation was provided by me (KAIT BROWN STRINGER MACHINE TENDER) Review of Systems: Review of Systems: Constitutional: Denies fever or chills. [] Eyes: Denies change in visual acuity. [] HENT: Denies nasal congestion or sore throat. [] Respiratory: Denies cough or shortness of breath. [] Cardiovascular: Denies chest pain or edema. [] GI: Denies abdominal pain, nausea, vomiting, bloody stools or diarrhea. [] : Denies dysuria. [] Musculoskeletal: Reports lower extremity pain. Denies back pain Integument: Denies rash. [] Neurologic: Denies headache, focal weakness or sensory changes. [] Endocrine: Reports history of diabetes. Lymphatic: Denies swollen glands. [] Psychiatric: Denies depression or anxiety. [] (KAIT BROWN STRINGER MACHINE TENDER) Heart Score: C/O Chest Pain: N/A Risk Factors: Risk Factors: DM, Current or recent (<one month) smoker, HTN, HLP, family history of CAD, obesity. Risk Scores: Score 0 - 3: 2.5% MACE over next 6 weeks - Discharge Home Score 4 - 6: 20.3% MACE over next 6 weeks - Admit for Clinical Observation Score 7 - 10: 72.7% MACE over next 6 weeks - Early Invasive Strategies (KAIT BROWN STRINGER MACHINE TENDER) Current Medications: Current Medications Medications (Trade) Dose Ordered Sig/Carlitos Start Time Stop Time Status Last Admin Dose Admin Gabapentin (Neurontin) 300 mg 1X STAT 09/18/21 20:21 09/18/21 20:25 DC 09/18/21 20:21 300 MG Sodium Chloride 1,000 ml @ 1,000 mls/hr 1X ONCE 09/18/21 16:15 09/18/21 17:14 DC 09/18/21 17:37 1,000 MLS/HR (KAIT BROWN STRINGER MACHINE TENDER) Allergies: Allergies: Allergies Coded Allergies Type Severity Reaction Last Updated Verified No Known Drug Allergies 06/17/21 No (KAIT BROWN STRINGER MACHINE TENDER) Physical Exam: PE: Constitutional: Thin appearing patient, no acute distress, non-toxic appearance. [] HENT: Normocephalic, atraumatic, bilateral external ears normal, oropharynx moist, no oral exudates, nose normal. [] Eyes: PERRLA, EOMI, conjunctiva normal, no discharge. [] Neck: Normal range of motion, no tenderness, supple, no stridor. [] Cardiovascular:Heart rate regular rhythm, no murmur [] Lungs & Thorax: Bilateral breath sounds clear to auscultation [] Abdomen: Bowel sounds normal, soft, no tenderness, no masses, no pulsatile masses. [] Skin: Warm, dry, no erythema, no rash. [] Back: No tenderness, no CVA tenderness. [] Extremities: No tenderness, no cyanosis, no clubbing, ROM intact, no edema. [] Neurologic: Alert and oriented X 3, normal motor function, normal sensory function, no focal deficits noted. [] Psychologic: Affect normal, judgement normal, mood normal. [] (KAIT BROWN STRINGER MACHINE TENDER) Current Patient Data: Labs: Laboratory Tests Test 09/18/21 15:51 09/18/21 17:25 09/18/21 19:40 Urine Collection Type Unknown Urine Color Straw Urine Clarity Clear Urine pH 7.0 (<5.0-8.0) Urine Specific [place] 1.020 (1.000-1.030) Urine Protein Negative mg/dL (NEG-TRACE) Urine Glucose (UA) >=1000 mg/dL (NEG) Urine Ketones (Stick) Negative mg/dL (NEG) Urine Blood Negative (NEG) Urine Nitrite Negative (NEG) Urine Bilirubin Negative (NEG) Urine Urobilinogen Dipstick 0.2 mg/dL (0.2 mg/dL) Urine Leukocyte Esterase Negative (NEG) Urine RBC 0 /HPF (0-2) Urine WBC 0 /HPF (0-4) Urine Squamous Epithelial Cells Few /LPF Urine Amorphous Sediment Present /HPF Urine Bacteria 0 /HPF (0-FEW) Urine Opiates Screen Neg (NEG) Urine Methadone Screen Neg (NEG) Urine Barbiturates Neg (NEG) Urine Phencyclidine Screen Neg (NEG) Urine Amphetamine/Methamphetamine Neg (NEG) Urine Benzodiazepines Screen Neg (NEG) Urine Cocaine Screen Neg (NEG) Urine Cannabinoids Screen Neg (NEG) Urine Ethyl Alcohol Neg (NEG) White Blood Count 4.8 x10^3/uL (4.0-11.0) Red Blood Count 4.59 x10^6/uL (4.30-5.70) Hemoglobin 14.0 g/dL (13.0-17.5) Hematocrit 40.8 % (39.0-53.0) Mean Corpuscular Volume 89 fL (79-100) Mean Corpuscular Hemoglobin 30 pg (25-35) Mean Corpuscular Hemoglobin Concent 34 g/dL (31-37) Red Cell Distribution Width 14.0 % (11.5-14.5) Platelet Count 225 x10^3/uL (140-400) Neutrophils (%) (Auto) 49 % (31-73) Lymphocytes (%) (Auto) 44 % (24-48) Monocytes (%) (Auto) 6 % (0-9) Eosinophils (%) (Auto) 1 % (0-3) Basophils (%) (Auto) 1 % (0-3) Neutrophils # (Auto) 2.3 x10^3/uL (1.8-7.7) Lymphocytes # (Auto) 2.1 x10^3/uL (1.0-4.8) Monocytes # (Auto) 0.3 x10^3/uL (0.0-1.1) Eosinophils # (Auto) 0.0 x10^3/uL (0.0-0.7) Basophils # (Auto) 0.0 x10^3/uL (0.0-0.2) Sodium Level 139 mmol/L (136-145) Potassium Level 4.5 mmol/L (3.5-5.1) Chloride Level 106 mmol/L (98-107) Carbon Dioxide Level 30 mmol/L (21-32) Anion Gap 3 (6-14) L Blood Urea Nitrogen 10 mg/dL (8-26) Creatinine 0.6 mg/dL (0.7-1.3) L Estimated GFR (Cockcroft-Gault) 149.2 BUN/Creatinine Ratio 17 (6-20) Glucose Level 158 mg/dL (70-99) H Calcium Level 8.5 mg/dL (8.5-10.1) Total Bilirubin 0.3 mg/dL (0.2-1.0) Aspartate Amino Transferase (AST) 17 U/L (15-37) Alanine Aminotransferase (ALT) 52 U/L (16-63) Alkaline Phosphatase 58 U/L (46-116) Total Protein 6.7 g/dL (6.4-8.2) Albumin 3.2 g/dL (3.4-5.0) L Albumin/Globulin Ratio 0.9 (1.0-1.7) L Ethyl Alcohol Level < 10 mg/dL (0-10) Laboratory Tests 09/18/21 17:25 Laboratory Tests 09/18/21 19:40 Vital Signs: Vital Signs Date Time Temp Pulse Resp B/P (MAP) Pulse Ox O2 Delivery O2 Flow Rate FiO2 09/18/21 20:21 58 16 118/79 (92) 100 Room Air 09/18/21 13:52 98.1 98.1 (KAIT BROWN APRN) EKG: EKG: [] (KAIT BROWN APRN) Radiology/Procedures: Radiology/Procedures: []PROCEDURE: VENOUS LOWER EXT BILATERAL Examination: Bilateral venous Doppler Indication: Leg swelling Technique: Ultrasound evaluation of the bilateral lower extremities was performed from the groin to the upper calf with vela scale, spectral and color doppler evaluation. Comparison: None Findings: There is normal venous flow and compressibility of bilateral common femoral veins, femoral veins, popliteal veins, and visualized proximal calf veins. Impression: No evidence for deep vein thrombosis of bilateral lower extremities from the level of the calf veins to the groins. Electronically signed by: Herbie Lunsford MD (09/18/2021 4:46 PM) [facility] DICTATED and SIGNED BY: HERBIE LUNSFORD MD DATE: 09/18/21 [id number] 0 PROCEDURE: CHEST AP ONLY Single view of the chest. 09/18/2021 4:13 PM Indication: Weight loss Comparison: None Findings: There is no focal consolidation. There is no pleural effusion or pneumothorax. The cardiomediastinal silhouette and pulmonary vasculature are within normal limits. No acute osseous abnormalities are seen. Impression: No evidence of acute cardiopulmonary process. Electronically signed by: Fareed La MD (09/18/2021 4:33 PM) [id number] DICTATED and SIGNED BY: FAREED LA MD DATE: 09/18/21 [id number] 0 (KAIT BROWN APRN) Course & Med Decision Making: Course & Med Decision Making Pertinent Labs and Imaging studies reviewed. (See chart for details) This a 41-year-old male patient presented to the ED today complaining of burning pain to bilateral lower extremities, symptoms have been going on for 1 month. He states he was seen at [facility] 2 weeks ago and admitted for the same pain. Had an extensive work-up and they could not find anything acute. He was informed it could be diabetes causing his pain. He also reports significant weight loss since 2019 when he was diagnosed with diabetes but he states he has no appetite since then. CBC with no acute findings, CMP noted for glucose of 153 no anion gap. UA negative for infection. Venous Dopplers of bilateral lower extremities are negative Patient's pain is likely diabetes neuropathy. Sent home on gabapentin. Follow- up with PCP (KAIT BROWN APRN) Course & Med Decision Making Patients Care and treatment plan provided by ER Nurse Practitioner. I was not involved in this patients care but was available for consult. Patient's chart reviewed. (MOISE JOSE DO) Kamille Disclaimer: Kamille Disclaimer: This electronic medical record was generated, in whole or in part, using a voice recognition dictation system. (KAIT BROWN APRN) Departure Departure Impression: Primary Impression: Neuropathy in diabetes Qualified Codes: E11.49 - Type 2 diabetes mellitus with other diabetic neurological complication Additional Impression: Hyperglycemia Disposition: HOME / SELF CARE / HOMELESS Condition: STABLE Referrals: NO PCP (PCP) rubi contreras Patient Instructions: Diabetic Neuropathy Additional Instructions: Anahy mirza. Brooke ramirez. Rubi contreras Scripts Naproxen (NAPROXEN) 500 Mg Tablet 1 TAB PO BID PRN for PAIN, #14 TAB 0 Refills Prov: KAIT BROWN STRINGER MACHINE TENDER 09/18/21 Cyclobenzaprine Hcl (CYCLOBENZAPRINE HCL) 10 Mg Tablet 1 TAB PO TID, #90 TAB 3 Refills Prov: KAIT BROWN STRINGER MACHINE TENDER 09/18/21 Gabapentin (GABAPENTIN ) 300 Mg Capsule 300 MG PO TID for NEUROGENIC PAIN, #90 CAP 3 Refills Prov: KAIT BROWN STRINGER MACHINE TENDER 09/18/21 KAIT BROWN STRINGER MACHINE TENDER Sep 18, 2021 21:06 MOISE JOSE DO Sep 19, 2021 18:07
== END 2021-09-18 23:01 | disposition home or self-care (01) ==
LOC: ER 13:08
DX: E11.49 Type 2 diabetes mellitus with other diabetic neurological complication (principal); E11.65 Type 2 diabetes mellitus with hyperglycemia; M79.604 Pain in right leg; M79.605 Pain in left leg
CPT/HCPCS: 36415; 71045; 80053; 80307; 81001; 85025; 87491; 87591; 93970; 96360; 99285; G0480; J7030; 96361